=== PATIENT | male | born 1985 | race Caucasian/White ===

== ENCOUNTER 2022-04-21 12:42 | Outpatient (CLI) | payer BC | END 2022-04-21 12:43 | disposition home or self-care (01) | LOC: CSHMRI 12:42 | PROVIDERS: ATTEND Surgery | DX: M50.20 Other cervical disc displacement, unspecified cervical region (principal); M25.559 Pain in unspecified hip; M62.81 Muscle weakness (generalized); M47.812 Spondylosis without myelopathy or radiculopathy, cervical region; M43.12 Spondylolisthesis, cervical region; M51.37 Other intervertebral disc degeneration, lumbosacral region; M48.07 Spinal stenosis, lumbosacral region; M47.816 Spondylosis without myelopathy or radiculopathy, lumbar region | CPT/HCPCS: 72052; 72110; 72141; 72148 ==